=== PATIENT | female | born 1945 | race Caucasian/White ===

== ENCOUNTER 2019-04-30 00:53 | Day surgery (SDC) | payer MEDICARE, SELFPAY ==
[2019-04-24 15:12] VITALS: BMI 24.2
[2019-04-30 08:07] VITALS: BP 148/71; PULSE 76; RESP 16; TEMP 36.4; O2SAT 98
[2019-04-30] MEDS: LACTATED RINGERS 1,000 ML 150 ML IV CONT (08:13)
[2019-04-30 08:22] LABS: Glucose Point of Care 152 (65-105)
--- NOTE | 2019-04-30 08:27 | PM.HPGS ---
History of Present Illness History of Present Illness Consent: Risks, benefits, and alternatives have been discussed and questions answered. Patient agrees to proceed with procedure. Chief complaint: Family History Of Colon CA Narrative: Eve Richmond is a 74 year old W female referred for screening colonoscopy secondary family history of colon cancer mother diagnosed in her 60s. Patient has had several colonoscopies in the past her last colonoscopy was performed in [place] at [facility] in 2013 no polyps were seen at that time. Patient is asymptomatic. Patient states she has had colon polyps on previous examinations. [facility], [facility] Past Medical History Medical History (Updated 04/30/19 @ 08:30 by Asaf Traore MD) Diabetes mellitus Dyslipidemia Endometriosis determined by laparoscopy GERD (gastroesophageal reflux disease) Hypertension Surgical History Surgical History (Updated 04/30/19 @ 08:29 by Asaf Traore MD) History of bilateral tubal ligation Meds Home Medications and Allergies Home Medications Medication Instructions Recorded Confirmed Type abatacept (with maltose) [Orencia 750 mg IV MONTHLY 04/24/19 04/24/19 History (with maltose)] calcium carbonate-vitamin D3 600 tablet PO BID 04/24/19 04/24/19 History [Calcium 600 with Vitamin D3] chlorpheniramine maleate [Allergy 4 mg PO DAILY 04/24/19 04/24/19 History (chlorpheniramine)] losartan 25 mg PO DAILY 04/24/19 04/24/19 History metformin 500 mg PO BID 04/24/19 04/24/19 History omeprazole 20 mg PO BID 04/24/19 04/24/19 History simvastatin 10 mg PO DAILY 04/24/19 04/24/19 History Allergies Allergy/AdvReac Type Severity Reaction Status Date / Time VALACYCLOVIR HCL Allergy Unknown Fainting Uncoded 04/30/19 08:06 Vital Signs Vital Signs - 24 hr 04/30/19 08:07 Temperature 36.4 C L Pulse Rate 76 Respiratory Rate 16 Blood Pressure 148/71 H Pulse Oximetry 98 Exam Const: Orientation/consciousness: patient oriented x3 Resp: Auscultation: clear to auscultation bilaterally Cardio: Rate: regular rate Rhythm: regular rhythm Heart sounds: no murmurs GI: GI Palp: Yes Soft to palpation, No Tenderness to palpation present (GI), Yes No hepatosplenomegaly present and No Palpable mass present Auscultation: normal bowel sounds Neuro: General: patient oriented x3 and no focal motor deficits Extrem: General: no pedal edema Assessment and Plan Additional Plan screening colonoscopy secondary history of colonic polyps and history of colon cancer in her mother
--- NOTE | 2019-04-30 08:33 | WPDANESEPPF ---
Anes - Initial Pre Proc Eval Procedure: Operation Date: 04/30/19 09:00 Proposed Procedures p Screening Colonoscopy - Asaf Traore MD Date/Time: 04/30/19 08:33 Surgeon: Asaf Traore MD Pre Op Diagnosis: Family History Of Colon CA Patient Data Age: 74 Gender: F Height: 5 ft 6 in Weight: 66.8 kg Last Vital Signs Temp 97.5 F L 04/30/19 08:07 Pulse 76 04/30/19 08:07 Resp 16 04/30/19 08:07 BP 148/71 H 04/30/19 08:07 Pulse Ox 98 04/30/19 08:07 Allergies Allergy/AdvReac Type Severity Reaction Status Date / Time VALACYCLOVIR HCL Allergy Unknown Fainting Uncoded 04/30/19 08:06 Home Medications Medication Instructions Recorded Confirmed Type abatacept (with maltose) [Orencia 750 mg IV MONTHLY 04/24/19 04/24/19 History (with maltose)] calcium carbonate-vitamin D3 600 tablet PO BID 04/24/19 04/24/19 History [Calcium 600 with Vitamin D3] chlorpheniramine maleate [Allergy 4 mg PO DAILY 04/24/19 04/24/19 History (chlorpheniramine)] losartan 25 mg PO DAILY 04/24/19 04/24/19 History metformin 500 mg PO BID 04/24/19 04/24/19 History omeprazole 20 mg PO BID 04/24/19 04/24/19 History simvastatin 10 mg PO DAILY 04/24/19 04/24/19 History Laboratory Tests 04/30/19 08:17 POC Capillary Glucose 152 mg/dl H mg/dl (65-105) Patient hx anesthesia problems: none Family hx anesthesia problems: none [facility] Past Medical History Medical History (Updated 04/30/19 @ 08:30 by Asaf Traore MD) Diabetes mellitus Dyslipidemia Endometriosis determined by laparoscopy GERD (gastroesophageal reflux disease) Hypertension Surgical History Surgical History (Updated 04/30/19 @ 08:29 by Asaf Traore MD) History of bilateral tubal ligation Anes - Eval Final PreProcedure Day of Procedure 04/30/19 08:33 Patient weight: normal Heart: regular rate and rhythm Lungs: clear to auscultation Airway: Mallampati scale class II Neurological: alert and oriented Last oral intake: >/= 8 hours ASA classification: III Emergent: no Anesthetic plan: proceed Anesthesia type and monitoring: general GIVS and standard monitoring Informed Consent: The patient's anesthetic plan and its attendant risks and benefits were discussed with the patient/family/POA. Questions were solicited and answers provided to the satisfaction of the patient/family/POA.
[2019-04-30 09:44] VITALS: BP 114/59; PULSE 81; RESP 22; O2SAT 100
[2019-04-30 09:54] VITALS: BP 130/75; PULSE 76; RESP 22; O2SAT 100
[2019-04-30 10:03] VITALS: BP 144/72; PULSE 75; RESP 18; O2SAT 100
== END 2019-04-30 10:14 | disposition home or self-care (01) ==
PROVIDERS: PCP Registered Nurse; Visit Provider Internal Medicine Gastroenterology
PROC: 0DJD8ZZ Inspection of Lower Intestinal Tract, Via Natural or Artificial Opening Endoscopic (ICD-10-PCS; CPT 45378; principal; 2019-04-30 09:00)
DX: Z12.11 Encounter for screening for malignant neoplasm of colon (principal); K63.5 Polyp of colon; Z80.0 Family history of malignant neoplasm of digestive organs; I10 Essential (primary) hypertension; E78.5 Hyperlipidemia, unspecified; E11.9 Type 2 diabetes mellitus without complications; K21.9 Gastro-esophageal reflux disease without esophagitis; Z79.84 Long term (current) use of oral hypoglycemic drugs
CPT/HCPCS: 45380; 88305; J2001; J2704; J7120

== ENCOUNTER → 2021-02-06 13:23 | Outpatient (CLI) | payer MEDICARE, SELFPAY ==
--- NOTE | ~2021-02-06 | CT_ITS ---
EXAMINATION: CT lung screening DATE: 02/06/2021 13:48 INDICATION: Nicotine dependence TECHNIQUE: Computed tomography (CT) of the chest was performed without intravenous contrast. The dose -length product was 82.86 mGy-cm. Automated exposure control and iterative reconstruction technique w ere employed. COMPARISON: None FINDINGS: No significant pleural or pericardial effusion. Heart size is normal. No thoracic lymphadenopathy. Mild atherosclerosis of the aorta and coronary arteries. The upper abdom en is unremarkable. There are scattered calcified granulomas in the lung parenchyma. There is periphe ral right middle lobe atelectasis/scarring. No suspicious noncalcified pulmonary nodules. No pneumoth orax. No focal airspace consolidation. Mild thoracic spondylosis. No acute osseous abnormality. IMPRESSION: 1. Lung-RADS category 1: Negative. Continue annual screening with noncontrast low-dose chest CT in 12 months. Reviewed, dictated and finalized at location B. GER MAN IMPRESSION: 1. Lung-RADS category 1: Negative. Continue annual screening with noncontrast l ow-dose chest CT in 12 months.
== END ==
PROVIDERS: PCP Registered Nurse; Visit Provider Registered Nurse
DX: F17.210 Nicotine dependence, cigarettes, uncomplicated (principal)
CPT/HCPCS: 71271

== ENCOUNTER → 2021-03-22 09:46 | Outpatient (CLI) | payer MEDICARE, SELFPAY ==
--- NOTE | ~2021-03-22 | DEXA_ITS ---
Bone Density Report Name: MIKE HERRERA Age: 75 Sex: Female Ethnicity: White Date of : 1945 Indication: postmenopausal; screening for osteoporosis; parental hip fracture; height loss; rheumatoid arthritis; Referring Provider: Kirsten, Neris Study: Bone densitometry was performed. Exam Date: March 22, 2021 Accession number: [id number] Bone Density: Region BMD T-score Z-score Classification AP Spine (L1-L4) 0.883 -1.5 0.9 Osteopenia Femoral Neck (Left) 0.639 -1.9 0.2 Osteopenia Total Hip (Left) 0.745 -1.6 0.2 Osteopenia Femoral Neck (Right) 0.619 -2.1 0.0 Osteopenia Total Hip (Right) 0.714 -1.9 -0.1 Osteopenia Total Hip Mean 0.730 -1.8 0.1 Osteopenia World Health Organization criteria for BMD impression classify patients as: Normal (T-score at or above -1.0), Osteopenia (T-score between -1.0 and -2.5), or Osteoporosis (T-score at or below -2.5). 10-year Fracture Risk(1): Major Osteoporotic Fracture 39% Hip Fracture 30% Reported Risk Factors: [place] (), Neck BMD=0.619, BMI=24.8, parental fracture, smoking, rheumatoid arthritis (1) FRAX(R) Version 3.08. Fracture probability calculated for an untreated patient. Fracture probability may be lower if the patient has received treatment. Clinical Information Provided by Patient: Parent has had a hip fracture Smokes Has rheumatoid arthritis Has used the following medications: Calcium, calcium includes vit D Patient maximum height was 66 Menopause Age: 54 No regular weight bearing exercise Drinks caffeinated beverages Onset of menses at age 13 Number of children 2 Impression: The patient has low bone mass, based on the Right Femoral Neck T-score. The patient has an estimated ten-year risk of hip fracture of 30% and an estimated ten-year risk of major fracture of 39%, based on the WHO FRAX algorithm. The patient has risk factors, including: parental hip fracture, smoking. Discussion: BONE DENSITY IS LOW AT ONE OR MORE SKELETAL SITES. THE PATIENT'S BMD AND CLINICAL RISK FACTORS CONTRIBUTE TO THIS PATIENT'S HIGH RISK OF FRACTURE. This patient's lowest T-score is low at one or more skeletal sites. It meets the World Health Organization's (WHO) criteria for ?low bone mass? (T-score between -1.0 and -2.5). The patient's 10-year risk of hip fracture and 10 year risk of a major osteoporotic fracture as calculated by FRAX exceeds the threshold where pharmacological therapy is recommended by the National Osteoporosis Foundation (NOF). However, all treatment decisions require clinical judgment and consideration of individual patient factors, including patient preferences, comorbidities, previous drug use, risk factors not captured in the FRAX model (e.g., frailty, falls, vitamin D deficiency, increased bone turnover, interval si
== END ==
PROVIDERS: PCP Registered Nurse; Visit Provider Registered Nurse
DX: Z78.0 Asymptomatic menopausal state (principal); M85.89 Other specified disorders of bone density and structure, multiple sites
CPT/HCPCS: 77080

== ENCOUNTER 2021-09-18 12:48 | Emergency (ER) | payer MEDICARE, SELFPAY ==
--- NOTE | ~2021-09-18 | XR_ITS ---
EXAMINATION: XR lumbar spine 2-3V DATE: 09/18/2021 14:16 INDICATION: Low back pain TECHNIQUE: Anteroposterior and lateral views of the lumbar spine, and cone-down lateral view of the l umbosacral junction were obtained. COMPARISON: None. FINDINGS: 6 degrees lumbar levocurvature. Sagittal alignment is normal. Vertebral body heights are normal. Mild disc height loss at L3-L4 and L5-S1, moderate disc height loss at L4-L5. Mild multilevel lumbar face t osteoarthritis with mild osteoarthritis at the bilateral sacroiliac joints. IMPRESSION: 1. Mild lumbar levocurvature with mild to moderate lower lumbar spondylosis. Reviewed, dictated and finalized at location B.
[2021-09-18 12:58] VITALS: BP 159/83; PULSE 109; RESP 16; TEMP 36.6; O2SAT 98
--- NOTE | 2021-09-18 13:44 | ED.BACK ---
HPI - Back Pain/Injury General Chief Complaint: Back Pain/Injury Stated Complaint: back pain Time Seen by Provider: 09/18/21 13:45 Source: patient Mode of arrival: ambulatory Limitations: no limitations History of Present Illness HPI Narrative: 76-year-old female presented for complaint of mid lower back pain for 3 days. She states it occurred when she reached over to kill a bug. Endorses the left leg has more difficulty when lifting to put on her pants. Endorses pain is worse with activity especially moving in bed. She denies numbness, tingling, weakness of the lower extremities, saddle paresthesia, loss of bowel or bladder. She has been taking Aleve every 12 hours as needed for pain. Related Data Home Medications Medication Instructions Recorded Confirmed abatacept (with maltose) 250 mg 750 mg IV MONTHLY 04/24/19 04/24/19 intravenous solution (Orencia (with maltose)) calcium carbonate 600 mg-vitamin 600 tablet PO BID 04/24/19 04/24/19 D3 10 mcg (400 unit) chewable tablet (Calcium 600 with Vitamin D3) chlorpheniramine maleate 4 mg 4 mg PO DAILY 04/24/19 04/24/19 tablet (Allergy (chlorpheniramine)) losartan 25 mg tablet 25 mg PO DAILY 04/24/19 04/24/19 metformin 500 mg tablet,extended 500 mg PO BID 04/24/19 04/24/19 release 24 hr omeprazole 20 mg capsule,delayed 20 mg PO BID 04/24/19 04/24/19 release simvastatin 10 mg tablet 10 mg PO DAILY 04/24/19 04/24/19 SUSTAIN 09/18/21 fesoterodine 8 mg tablet,extended tablet PO 09/18/21 release 24 hr (Toviaz) fluticasone propionate 50 ea intranasal 09/18/21 mcg/actuation nasal spray,suspension (Flonase Allergy Relief) sulfamethoxazole 800 tablet 09/18/21 mg-trimethoprim 160 mg tablet Allergies Allergy/AdvReac Type Severity Reaction Status Date / Time VALACYCLOVIR HCL Allergy Unknown Fainting Uncoded 04/30/19 08:06 Review of Systems Review of Systems: CONSTITUTIONAL: Denies body aches, fever, chills EYES: Denies visual changes ENT: Denies rhinorrhea, congestion CARDIOVASCULAR: Denies chest pain, palpitations, or edema. RESPIRATORY: Denies cough or dyspnea. GASTROINTESTINAL: Denies abdominal pain, nausea, vomiting, or diarrhea. SKIN: Denies rash, itching, or wounds. MUSCULOSKELETAL: Denies back pain, joint pain, or myalgia. NEUROLOGIC: Denies headache, numbness, tingling, or weakness. PSYCH: Denies depression or anxiety. All systems reviewed & are unremarkable except as noted in HPI and below PMFSH Past Medical History Medical History Diabetes mellitus Dyslipidemia Endometriosis determined by laparoscopy GERD (gastroesophageal reflux disease) Hypertension Surgical History Surgical History History of bilateral tubal ligation Comments At time of signature, I have reviewed and agree with nursing past medical, surgical, social and family history unless otherwise noted. Please see nursing chart for further information. There is no relevant family history pertinent to the presenting complaint Exam Narrative: GENERAL: Well-appearing, appears in pain CHEST: Speaks in full sentences. No respiratory distress. HEART: Regular rate and rhythm. Normal and equal peripheral pulses. EXTREMITIES: BLEs have normal strength and sensation, normal range of motion; Tender to mid low back paraspinal approx L3-4 area, no vertebral point tenderness. No open wounds, skin tenting, or obvious deformity; alignment normal, pulse palpable and equal bilaterally, skin warm, dry, pink. Capillary refill less than 3 seconds. SKIN: Warm, dry, no rash. NEURO: Alert and oriented x3. PSYCH: Normal mood and affect Course Course Emergency Course: Patient is aware of diagnosis, understands and agrees to treatment plan. Anticipatory guidance given. Patient agrees to follow-up as directed and is aware of reasons to seek care at the emerge
== END 2021-09-18 14:50 | disposition home or self-care (01) ==
PROVIDERS: Emergency Provider Nurse Practitioner Family; PCP Registered Nurse
DX: S39.012A Strain of muscle, fascia and tendon of lower back, initial encounter (principal); X50.9XXA Other and unspecified overexertion or strenuous movements or postures, initial encounter; E11.9 Type 2 diabetes mellitus without complications; E78.5 Hyperlipidemia, unspecified; N80.9 Endometriosis, unspecified; K21.9 Gastro-esophageal reflux disease without esophagitis; I10 Essential (primary) hypertension
CPT/HCPCS: 72100; 99213; G0463

== ENCOUNTER → 2021-11-07 10:44 | Outpatient (CLI) | payer MEDICARE, SELFPAY ==
--- NOTE | ~2021-11-07 | MR_ITS ---
EXAMINATION: MR lumbar spine wo con DATE: 11/07/2021 11:20 INDICATION: Right lower extremity weakness TECHNIQUE: Magnetic resonance imaging (MRI) of the lumbar spine was performed without intravenous con trast. Sequences included sagittal T2-weighted FSE, sagittal T2-weighted FS FSE, sagittal T1-weighted FSE, and axial T2-weighted FSE. COMPARISON: None FINDINGS: Minimal lumbar levocurvature. Sagittal alignment is normal. Vertebral body heights are normal. T1 hyp erintense hemangioma at L1. Marrow signal is otherwise normal. Disc desiccation and mild disc height loss at L2-L3 through L4-L5. Annular fissures at L3-L4 and L4-L5. The conus medullaris terminates at L1-L2. There is normal signal in the caudal spinal cord. Paravertebral soft tissues are unremarkable. The following disc levels are specifically discussed: T12-L1: The disc does not extend beyond the endplate margin. There is mild bilateral facet joint oste oarthritis. There is no neural foraminal stenosis. There is no central canal stenosis. L1-L2: The disc does not extend beyond the endplate margin. There is mild bilateral facet joint osteo arthritis. There is minimal bilateral neural foraminal stenosis. There is no central canal stenosis. L2-L3: Disc is mildly bulging. There is mild hypertrophy of the ligamentum flavum. There is mild bila teral facet joint osteoarthritis. There is moderate bilateral neural foraminal stenosis. There is min imal central canal stenosis. L3-L4: Disc is mildly bulging. There is mild hypertrophy of the ligamentum flavum. There is mild left and minimal right facet joint osteoarthritis. There is moderate left and mild to moderate right neur al foraminal stenosis. There is mild central canal stenosis. L4-L5: Disc is bulging with annular fissure and superimposed central disc extrusion with disc materia l extending 3 to 4 mm caudal to the level of the superior endplate of L5. There is mild bilateral fac et joint osteoarthritis. There is moderate bilateral neural foraminal stenosis. There is mild central canal stenosis. L5-S1: Disc is mildly bulging. There is mild right and moderate left facet joint osteoarthritis. Ther e is mild to moderate bilateral neural foraminal stenosis. There is no central canal stenosis. IMPRESSION: 1. Mild lumbar spondylosis. Reviewed, dictated and finalized at location A. IMPRESSION: 1. Mild lumbar spondylosis.
== END ==
PROVIDERS: PCP Registered Nurse; Visit Provider Registered Nurse
DX: R29.898 Other symptoms and signs involving the musculoskeletal system (principal); M47.816 Spondylosis without myelopathy or radiculopathy, lumbar region
CPT/HCPCS: 72148

== ENCOUNTER → 2022-06-28 10:10 | Outpatient (CLI) | payer MEDICARE, SELFPAY ==
--- NOTE | ~2022-06-28 | CT_ITS ---
CT Scan of the Chest without Contrast: Clinical Indication: Lung cancer screening, personal history of tobacco dependence Technique: Contiguous sections were acquired throughout the chest without intravenous contrast. Dose reduction technique was used on this scan by utilizing automated exposure control and iterative recon struction technique. The dose-length product (DLP) was 61.14 mGy-cm. COMPARISON: 02/06/2021 Findings: There is no evidence of any significant mediastinal, hilar or axillary lymphadenopathy. Small calcifi ed mediastinal lymph nodes are present. Coronary artery calcifications are present. There is no evidence of pleural or pericardial effusion. Scattered calcified granulomas are noted. Stable 5 mm groundglass nodule in the right lung (axial naa ge 69). Images through the upper abdomen reveal no abnormalities. Impression: Lung RADS 2: Benign appearance. 12 month follow-up screening CT advised. Reviewed, dictated and finalized at [facility]. Impression: Lung RADS 2: Benign appearance. 12 month follow-up screening CT advised.
== END ==
PROVIDERS: PCP Registered Nurse; Visit Provider Registered Nurse
DX: Z12.2 Encounter for screening for malignant neoplasm of respiratory organs (principal); F17.210 Nicotine dependence, cigarettes, uncomplicated
CPT/HCPCS: 71271

== ENCOUNTER 2022-08-24 00:18 | Day surgery (SDC) | payer MEDICARE, SELFPAY ==
[2022-08-15 14:55] VITALS: BMI 23.9
--- NOTE | 2022-08-23 09:09 | PM.HPGS ---
History of Present Illness History of Present Illness Consent: Risks, benefits, and alternatives have been discussed and questions answered. Patient agrees to proceed with procedure. Chief complaint: neoplasm screening, family hx colon ca Narrative: Eve Richmond is a 77 year old female Referred for colon cancer screening. She has a family history of colon cancer. Mother had colon cancer and a grandparent had colon cancer as well. Also, she had a polyp removed 3 years ago Review of Systems Review of Systems: All systems reviewed & are unremarkable except as noted in HPI and below PMFSH Past Medical History Medical History Diabetes mellitus Dyslipidemia Endometriosis determined by laparoscopy GERD (gastroesophageal reflux disease) Hypertension Surgical History Surgical History History of bilateral tubal ligation Social History Social History Smoking status: Current every day smoker Tobacco type: cigarettes Living arrangements: alone Spiritual care concerns: No Meds Home Medications and Allergies Home Medications Medication Instructions Recorded Confirmed Type abatacept (with maltose) 250 mg 750 mg IV MONTHLY 04/24/19 08/16/22 History intravenous solution (Orencia (with maltose)) calcium carbonate 600 mg-vitamin 600 tablet PO BID 04/24/19 08/16/22 History D3 10 mcg (400 unit) chewable tablet (Calcium 600 with Vitamin D3) chlorpheniramine maleate 4 mg 4 mg PO DAILY 04/24/19 08/16/22 History tablet (Allergy (chlorpheniramine)) losartan 25 mg tablet 50 mg PO DAILY 04/24/19 08/16/22 History metformin 500 mg tablet,extended 500 mg PO BID 04/24/19 08/16/22 History release 24 hr omeprazole 20 mg capsule,delayed 20 mg PO BID 04/24/19 08/16/22 History release simvastatin 10 mg tablet 10 mg PO DAILY 04/24/19 08/16/22 History fluticasone propionate 50 1 ea intranasal DAILY 09/18/21 08/16/22 History mcg/actuation nasal spray,suspension (Flonase Allergy Relief) diphenhydramine HCl 50 mg capsule 50 mg PO DAILY PRN Allergic 08/16/22 08/16/22 History Reaction peg 400-propylene glycol 0.4 %-0.3 1 drp EACH EYE TID PRN Dry Eye(S) 08/16/22 08/16/22 History % eye drops (Systane Ultra) Allergies Allergy/AdvReac Type Severity Reaction Status Date / Time VALACYCLOVIR HCL Allergy Unknown Fainting Uncoded 08/24/22 08:00 Exam Const: General: alert Orientation/consciousness: patient oriented x3 Resp: Auscultation: clear to auscultation bilaterally Cardio: Rhythm: regular rhythm GI: GI Palp: Yes Soft to palpation and No Tenderness to palpation present (GI) Neuro: General: patient oriented x3 Assessment and Plan Assessment and plan (1) Colon cancer screening: Code(s): Z12.11 - Encounter for screening for malignant neoplasm of colon Status: Acute Assessment and Plan: Colonoscopy with possible biopsy or polypectomy or cautery or injection of substances.
--- NOTE | 2022-08-24 07:40 | WPDANESEPPF ---
Anes - Initial Pre Proc Eval Procedure: Operation Date: 08/24/22 09:00 Proposed Procedures p Screening Colonoscopy - Demar Almazan MD Date/Time: 08/24/22 07:40 Surgeon: Demar Almazan MD Pre Op Diagnosis: neoplasm screening, family hx colon ca Patient Data Age: 77 Gender: F Height: 1.68 m Weight: 67.2 kg Allergies Allergy/AdvReac Type Severity Reaction Status Date / Time VALACYCLOVIR HCL Allergy Unknown Fainting Uncoded 08/24/22 08:00 Home Medications Medication Instructions Recorded Confirmed Type abatacept (with maltose) 250 mg 750 mg IV MONTHLY 04/24/19 08/16/22 History intravenous solution (Orencia (with maltose)) calcium carbonate 600 mg-vitamin 600 tablet PO BID 04/24/19 08/16/22 History D3 10 mcg (400 unit) chewable tablet (Calcium 600 with Vitamin D3) chlorpheniramine maleate 4 mg 4 mg PO DAILY 04/24/19 08/16/22 History tablet (Allergy (chlorpheniramine)) losartan 25 mg tablet 50 mg PO DAILY 04/24/19 08/16/22 History metformin 500 mg tablet,extended 500 mg PO BID 04/24/19 08/16/22 History release 24 hr omeprazole 20 mg capsule,delayed 20 mg PO BID 04/24/19 08/16/22 History release simvastatin 10 mg tablet 10 mg PO DAILY 04/24/19 08/16/22 History fluticasone propionate 50 1 ea intranasal DAILY 09/18/21 08/16/22 History mcg/actuation nasal spray,suspension (Flonase Allergy Relief) diphenhydramine HCl 50 mg capsule 50 mg PO DAILY PRN Allergic 08/16/22 08/16/22 History Reaction peg 400-propylene glycol 0.4 %-0.3 1 drp EACH EYE TID PRN Dry Eye(S) 08/16/22 08/16/22 History % eye drops (Systane Ultra) Patient hx anesthesia problems: none Family hx anesthesia problems: none Results Review: All pre-operative results and documents have been reviewed as part of the pre-operative evaluation. [facility] Past Medical History Medical History Diabetes mellitus Dyslipidemia Endometriosis determined by laparoscopy GERD (gastroesophageal reflux disease) Hypertension Surgical History Surgical History History of bilateral tubal ligation Social History Social History Smoking status: Current every day smoker Tobacco type: cigarettes Living arrangements: alone Spiritual care concerns: No Anes - Eval Final PreProcedure Day of Procedure 08/24/22 07:40 Patient weight: normal Heart: regular rate and rhythm Lungs: clear to auscultation Airway: Mallampati scale class II Neurological: alert and oriented Last oral intake: >/= 8 hours ASA classification: III Emergent: no Anesthetic plan: proceed Anesthesia type and monitoring: general GIVS and standard monitoring Results Review: All pre-operative results and documents have been reviewed as part of the pre-operative evaluation. Informed Consent: The patient's anesthetic plan and its attendant risks and benefits were discussed with the patient/family/POA. Questions were solicited and answers provided to the satisfaction of the patient/family/POA.
[2022-08-24 08:02] VITALS: BP 132/62; PULSE 79; RESP 18; TEMP 36.3; O2SAT 99
[2022-08-24] MEDS: LACTATED RINGERS 1,000 ML 150 ML IV CONT (08:12)
[2022-08-24 08:14] LABS: Glucose Point of Care 146 mg/dl (65-105)
[2022-08-24 09:23] VITALS: BP 99/44; PULSE 89; RESP 14; O2SAT 97
[2022-08-24 09:33] VITALS: BP 98/44; PULSE 89; RESP 14; O2SAT 98
[2022-08-24 09:43] VITALS: BP 116/55; PULSE 68; RESP 14; O2SAT 98
== END 2022-08-24 09:54 | disposition home or self-care (01) ==
PROVIDERS: PCP Registered Nurse; Visit Provider Internal Medicine Gastroenterology
PROC: 0DJD8ZZ Inspection of Lower Intestinal Tract, Via Natural or Artificial Opening Endoscopic (ICD-10-PCS; CPT 45378; principal; 2022-08-24 09:00)
DX: Z12.11 Encounter for screening for malignant neoplasm of colon (principal); D12.5 Benign neoplasm of sigmoid colon; K63.5 Polyp of colon; Z80.0 Family history of malignant neoplasm of digestive organs; E11.9 Type 2 diabetes mellitus without complications; E78.5 Hyperlipidemia, unspecified; I10 Essential (primary) hypertension; K21.9 Gastro-esophageal reflux disease without esophagitis; Z79.82 Long term (current) use of aspirin; F17.210 Nicotine dependence, cigarettes, uncomplicated
CPT/HCPCS: 45385; 82948; 88305; J2704; J7120

== ENCOUNTER 2023-07-01 09:45 | Outpatient (CLI) | payer MEDICARE, SELFPAY ==
--- NOTE | ~2023-07-01 | CT_ITS ---
EXAMINATION: CT lung screening DATE: 07/01/2023 09:57 INDICATION: Nicotine dependence TECHNIQUE: Computed tomography (CT) of the chest was performed without intravenous contrast. Addition al 3D reconstructions utilizing coronal maximum intensity projection (MIP) were performed. Automated exposure control and iterative reconstruction technique were employed. The dose-length product was 60 .34 mGy-cm. 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 There are also a few scattered unchanged <3 mm noncalcified pulmonary nodules in both lungs. No significant change in approximately 6 mm groundglass nodule in the right lower lobe o n series 4, image 71. No new or enlarging pulmonary nodules, pneumonia, pulmonary edema or pleural ef fusion. Heart size is normal with mild mass effect upon the anterior wall of the right atrium resulti ng from mild pectus excavatum. Atherosclerotic coronary artery calcifications. No pericardial effusio n. Thoracic aorta is normal in caliber. No pathologically enlarged thoracic lymphadenopathy. No signi ficant change in a couple approximately 12 mm low-attenuation hepatic cysts in the left and right hep atic lobes. Mild thoracic spondylosis with chronic mild anterior wedging at T5-T7. IMPRESSION: 1. Lung-RADS category 2: Benign appearance or behavior. Continue annual screening with noncontrast lo w-dose chest CT in 12 months. Reviewed, dictated and finalized at location [facility]. IMPRESSION: 1. Lung-RADS category 2: Benign appearance or behavior. Continue annual screeni ng with noncontrast low-dose chest CT in 12 months.
== END 2023-07-01 09:46 ==
LOC: MICIMG 09:46
PROVIDERS: PCP Registered Nurse; Visit Provider Registered Nurse
DX: Z12.2 Encounter for screening for malignant neoplasm of respiratory organs (principal); F17.210 Nicotine dependence, cigarettes, uncomplicated
CPT/HCPCS: 71271

== ENCOUNTER 2024-01-22 06:06 | Day surgery (SDC) | payer MEDICARE, SELFPAY ==
[2024-01-13 14:19] VITALS: BMI 22.4
[2024-01-14 09:18] VITALS: BMI 22.7
--- NOTE | 2024-01-22 06:39 | P.PNAN_ITS ---
Anes - Initial Pre Proc Eval Procedure: Operation Date: 01/22/24 08:00 Proposed Procedures p Esophagogastroduodenoscopy - Eric Pulido MD Date/Time: 01/22/24 06:39 Surgeon: Eric Pulido MD Pre Op Diagnosis: GERD Patient Data Age: 78 Gender: F Height: 1.68 m Weight: 64 kg Allergies Allergy/AdvReac Type Severity Reaction Status Date / Time VALACYCLOVIR HCL Allergy Unknown Fainting Uncoded 01/22/24 06:43 Home Medications Medication Instructions Recorded Confirmed Type abatacept (with maltose) 250 mg 750 mg IV MONTHLY 04/24/19 01/14/24 History intravenous solution (Orencia (with maltose)) calcium 600 mg (as carbonate)-vit 600 tablet PO BID 04/24/19 01/22/24 History D3 10 mcg (400 unit) chewable tablet (Calcium 600 with Vitamin D3) chlorpheniramine maleate 4 mg 4 mg PO DAILY 04/24/19 01/14/24 History tablet (Allergy (chlorpheniramine)) losartan 25 mg tablet 50 mg PO DAILY 04/24/19 01/22/24 History metformin 500 mg tablet,extended 500 mg PO BID 04/24/19 01/14/24 History release 24 hr omeprazole 20 mg capsule,delayed 20 mg PO BID 04/24/19 01/22/24 History release simvastatin 10 mg tablet 10 mg PO DAILY 04/24/19 01/22/24 History fluticasone propionate 50 1 ea intranasal DAILY 09/18/21 01/14/24 History mcg/actuation nasal spray,suspension (Flonase Allergy Relief) diphenhydramine HCl 50 mg capsule 50 mg PO DAILY PRN Allergic 08/16/22 01/14/24 History Reaction peg 400-propylene glycol 0.4 %-0.3 1 drp EACH EYE TID PRN Dry Eye(S) 08/16/22 01/14/24 History % eye drops (Systane Ultra) famotidine 20 mg tablet 20 mg PO BID 01/14/24 01/22/24 History Patient hx anesthesia problems: none Family hx anesthesia problems: none Results Review: All pre-operative results and documents have been reviewed as part of the pre- operative evaluation. [facility] Past Medical History Medical History Diabetes mellitus Dyslipidemia Endometriosis determined by laparoscopy GERD (gastroesophageal reflux disease) Hypertension Surgical History Surgical History History of bilateral tubal ligation Social History Social History Years smoked: 40 Smoking status: Current every day smoker Tobacco type: cigarettes Alcohol intake: never Substance use: never Substance use type: does not use Living arrangements: alone Spiritual care concerns: No Anes - Eval Final PreProcedure Day of Procedure 01/22/24 06:39 Patient weight: normal Heart: regular rate and rhythm Lungs: clear to auscultation and normal air movement Airway: Mallampati scale class II Neurological: alert and oriented Last oral intake: >/= 8 hours ASA classification: III Emergent: no Anesthetic plan: proceed Anesthesia type and monitoring: general GIVS and standard monitoring Results Review: All pre-operative results and documents have been reviewed as part of the pre- operative evaluation. Informed Consent: The patient's anesthetic plan and its attendant risks and benefits were discussed with the patient/family/POA. Questions were solicited and answers provided to the satisfaction of the patient/family/POA.
[2024-01-22 06:47] VITALS: BP 129/95; PULSE 97; RESP 18; TEMP 36.2; O2SAT 97; BMI 22.8
[2024-01-22] MEDS: LACTATED RINGERS 1,000 ML 150 ML IV CONT (07:04)
[2024-01-22 07:06] LABS: Glucose Point of Care 128 mg/dl (65-105)
--- NOTE | 2024-01-22 07:08 | PM.HPGS ---
History of Present Illness History of Present Illness Consent: Risks, benefits, and alternatives have been discussed and questions answered. Patient agrees to proceed with procedure. Chief complaint: GERD Narrative: Eve Richmond is a 78 year old female referred for EGD has a long history of acid reflux. She describes acid regurgitation substernal burning. Currently prescribed omeprazole 40mg p.o. daily. Recently Pepcid was added as a supplement. Patient continues to have episodes of acid regurgitation. Patient denies any dysphagia. She has had no bleeding or weight loss. Family history is noncontributory. Patient does have a family history of colon cancer. Recent colonoscopy confirmed that she also has polyps. Follow-up colonoscopy is anticipated at 3-5 year intervals. Review of Systems Review of Systems: All systems reviewed & are unremarkable except as noted in HPI and below PMFSH Past Medical History Medical History Diabetes mellitus Dyslipidemia Endometriosis determined by laparoscopy GERD (gastroesophageal reflux disease) Hypertension Surgical History Surgical History History of bilateral tubal ligation Social History Social History Years smoked: 40 Smoking status: Current every day smoker Tobacco type: cigarettes Alcohol intake: never Substance use: never Substance use type: does not use Living arrangements: alone Spiritual care concerns: No Meds Home Medications and Allergies Home Medications Medication Instructions Recorded Confirmed Type abatacept (with maltose) 250 mg 750 mg IV MONTHLY 04/24/19 01/14/24 History intravenous solution (Orencia (with maltose)) calcium 600 mg (as carbonate)-vit 600 tablet PO BID 04/24/19 01/22/24 History D3 10 mcg (400 unit) chewable tablet (Calcium 600 with Vitamin D3) chlorpheniramine maleate 4 mg 4 mg PO DAILY 04/24/19 01/14/24 History tablet (Allergy (chlorpheniramine)) losartan 25 mg tablet 50 mg PO DAILY 04/24/19 01/22/24 History metformin 500 mg tablet,extended 500 mg PO BID 04/24/19 01/14/24 History release 24 hr omeprazole 20 mg capsule,delayed 20 mg PO BID 04/24/19 01/22/24 History release simvastatin 10 mg tablet 10 mg PO DAILY 04/24/19 01/22/24 History fluticasone propionate 50 1 ea intranasal DAILY 09/18/21 01/14/24 History mcg/actuation nasal spray,suspension (Flonase Allergy Relief) diphenhydramine HCl 50 mg capsule 50 mg PO DAILY PRN Allergic 08/16/22 01/14/24 History Reaction peg 400-propylene glycol 0.4 %-0.3 1 drp EACH EYE TID PRN Dry Eye(S) 08/16/22 01/14/24 History % eye drops (Systane Ultra) famotidine 20 mg tablet 20 mg PO BID 01/14/24 01/22/24 History Allergies Allergy/AdvReac Type Severity Reaction Status Date / Time VALACYCLOVIR HCL Allergy Unknown Fainting Uncoded 01/22/24 06:43 Vital Signs Vital Signs - 24 hr 01/22/24 06:47 Temperature 97.2 F L Pulse Rate 97 Respiratory Rate 18 Blood Pressure 129/95 H Pulse Oximetry 97 Oxygen Delivery Room Air Exam Narrative: Physical exam reveals patient to be alert. Vital signs stable. HEENT exam is unremarkable. Patient is anicteric. Lungs are clear to auscultation and to percussion. Heart is without murmur or extra sounds. Abdomen bowel sounds are present soft nontender with no organomegaly. Assessment and Plan Assessment and plan (1) Chronic GERD: Code(s): K21.9 - Gastro-esophageal reflux disease without esophagitis Status: Acute Assessment and Plan: Patient appears to have chronic GE reflux that is only marginally controlled with current medications. Plan for EGD at this time to exclude Martin's esophagus.
[2024-01-22 07:52] VITALS: BP 121/63; PULSE 85; RESP 18; O2SAT 95
[2024-01-22 08:02] VITALS: BP 118/67; PULSE 85; RESP 18; O2SAT 96
[2024-01-22 08:12] VITALS: BP 123/73; PULSE 80; RESP 16; O2SAT 96
--- NOTE | 2024-01-22 12:29 | WPDANESPN ---
Anes - Prog Note Post-Op Date/Time: 01/22/24 12:29 Cardiovascular status: normal Respiratory status: normal Airway patency: baseline Mental status: baseline Post-Op hydration status: normal Vital Signs: Last Vital Signs Temp 36.2 C L 01/22/24 06:47 Pulse 80 01/22/24 08:12 Resp 16 01/22/24 08:12 BP 123/73 01/22/24 08:12 Pulse Ox 96 01/22/24 08:12 O2 Del Method Room Air 01/22/24 08:12 Pain Score (VAS): 0 I/O: Intake & Output 01/21/24 01/22/24 01/22/24 23:59 07:59 15:59 Intake Total 0 100 Balance 0 100 01/22/24 07:02 POC Capillary Glucose 128 H Post-procedural complaints: none Patient Feedback: Patient satisfied with anesthetic care. Other Findings: Patient vital signs back to baseline. Patient denies nausea and vomiting. Patient's pain under control. Patient OK for discharge.
== END 2024-01-22 08:30 | disposition home or self-care (01) ==
PROVIDERS: PCP Registered Nurse; Visit Provider Internal Medicine Gastroenterology
PROC: 0DJ08ZZ Inspection of Upper Intestinal Tract, Via Natural or Artificial Opening Endoscopic (ICD-10-PCS; CPT 43235; principal; 2024-01-22 08:00)
DX: K21.9 Gastro-esophageal reflux disease without esophagitis (principal)
CPT/HCPCS: 43239